=== PATIENT | female | born 1960 | race African-American/Black ===

== ENCOUNTER 2016-12-26 19:55 | Emergency (ER) | payer OTHER ==
[~2016-12-26] VITALS: Ht 167.6 cm; Wt 95.0 kg
[~2016-12-26 19:55] MED LIST: AMLO5TAB2 PO; ATOR10 PO; CONTOUR1 XX; DARU600 PO; ELVI1TAB4; IBUP600T26 PO; LISI40TA PO; MOME17I; MULT1PAK; NORV5TAB PO; SPIR50TA21 PO; VITA400C70 PO
[2016-12-26 19:56] VITALS: BP 206/124; PULSE 88; RESP 16; TEMP 98.1; O2SAT 99
[2016-12-26] MEDS ORDERED: NAPROXEN 500 MG TAB PO ONE (20:15)
--- NOTE | 2016-12-26 20:19 | PD ---
HPI Chief Complaint: Injury Time Seen by Provider: 20:17 Travel History International Travel<30 days: No Contact w/Intl Traveler<30days: No Traveled to known affect area: No History of Present Illness HPI Patient comes in complaining of right foot pain that occurred shortly prior to arrival. Patient states she was hanging curtains when the chair folded on her causing her feet to go between the chair causing her to fall and have a 60" flat screen TV fall on her right foot. Patient denies hitting her head or loss consciousness. Patient denies doing anything for this prior to arrival. Patient having an aching pain over the lateral aspect of the right foot proximally without radiation. Pain is worse with standing or trying to walk. Patient denies any numbness or tingling. Patient states she is supposed to take blood pressure but only takes it intermittently. Denies any chest pain or shortness breath, headache, numbness or tingling anywhere, loss of bowel or bladder, abdominal pain, or back pain. PFSH Past Medical History Hx Anticoagulant Therapy: Yes (ASA) Depression: Yes Heart Rhythm Problems: No Cardiac Catheterization: No Cardiovascular Problems: Yes (HTN) High Cholesterol: No Congestive Heart Failure: No Diabetes: Yes (NO MEDS) Diminished Hearing: No Hepatitis: Yes (C) Hypertension: Yes Reproductive: Yes Respiratory: Yes Myocardial Infarction: No Tubal Ligation: Yes Past Surgical History Section: Yes Cholecystectomy: Yes Coronary Artery Bypass Graft: No Gynecologic Surgery: Yes () Social History Alcohol Use: Yes (occ) Tobacco Use: Yes Substance Use: Yes (MARIJUANA) Allergies-Medications (Allergen,Severity, Reaction): Coded Allergies: No Known Allergies (Verified , 12/26/16) Reported Meds & Prescriptions Reported Meds & Active Scripts Active Lisinopril 40 Mg Tab 40 Mg PO DAILY Amlodipine (Amlodipine Besylate) 5 Mg Tab 5 Mg PO DAILY Norvasc (Amlodipine Besylate) 5 Mg Tab 5 Mg PO DAILY Spironolactone 50 Mg Tab 50 Mg PO DAILY Lipitor 10 mg tab (Atorvastatin) 10 Mg Tab 10 Mg PO HS Contour1 1 Strip XX DIRECTED contour next strips Prinivil 40 mg (Lisinopril) 40 Mg Tab 40 Mg PO DAILY Reported Emergen-C Vitamin C Lite (Multiple Vitamins W/ Minerals) 1 Morris Morris DAILY Ibuprofen 600 Mg Tab 600 Mg PO Q3HR PRN Prezista 600 Mg Tab (Darunavir) 600 Mg Tab 800 Mg PO DAILY Genvoya [id number] mg (Djwducjagiuf-Gubzdxhmmq-Kwjpxk) 1 Tab Tab DAILY Vitamin [id number] 400 Unit Cap 400 Unit PO DAILY Nasonex (Mometasone Furoate) 50 Mcg/Ac Spr 50 Mcg NA DAILY Review of Systems Except as stated in HPI: all other systems reviewed are Neg Physical Exam Narrative GENERAL: Well-developed, overly nourished, in no acute distress, and non-ill appearing. SKIN: Warm and dry. HEAD: Atraumatic. Normocephalic. EYES: Pupils equal and round. EOMI. No scleral icterus. No injection or drainage. ENT: No nasal bleeding or discharge. Mucous membranes pink and moist. NECK: Trachea midline. Supple. No nuclear rigidity. CARDIOVASCULAR: Dorsal pulses 2+ intact, and equal bilaterally. Capillary refill less than 2 seconds. RESPIRATORY: No accessory muscle use. No respiratory distress. MUSCULOSKELETAL: No obvious deformities. No clubbing. No cyanosis. No edema. Full range of motion. Ankle: Neagative anterior draw and Sin test. Negative Morenita's sign. No laxity noted with passive inversion and eversion of BL ankles. Negative squeeze test. Pulses equal BL distal to injury. Capillary refill less than 2 seconds distal to injury and equal BL. Sensation equal BL 1st web space. FROM of toes distal to injury and equal BL. NV intact distal to injury and equal BL. Dorsal pulses equal BL. Patient reports tenderness to palpation around soft tissue swelling of the proximal fourth and fifth metatarsal the dorsal aspect of her right foot. NEUROLOGICAL: Awake and alert. No obvious cranial nerve deficits. Motor grossly within normal limits. Normal speech. PSYCHIATRIC: Appropriate mood and affect; insight and judgment normal. Data Data Last Documented VS Vital Signs Date Time Temp Pulse Resp B/P Pulse Ox O2 Delivery O2 Flow Rate FiO2 12/26/16 21:27 84 14 177/99 Room Air 12/26/16 19:56 98.1 99 Orders Foot, Complete ([id number]) (12/26/16 ) Ice/Cold Pack (12/26/16 20:09) Naproxen (Naprosyn) (12/26/16 20:15) Splint Or Brace Apply/Monitor (12/26/16 20:54) MDM Medical Decision Making Medical Screen Exam Complete: Yes Emergency Medical Condition: Yes Differential Diagnosis Fracture, strain, contusion, back, medical noncompliance, other Narrative Course The patient appears to have suffered a contusion of the extremity. There is no clinical evidence to suspect bony injury by exam. Radiographic examination revealed no fracture seen at this time. The patient has full range of motion on active and passive motions. There is no significant edema. There is no proximal or distal joint effusion. The distal extremity appears neurovascularly intact, without evidence of neurovascular injury nor compartment syndrome. Tendon exam also was intact. The patient was discharged and given warnings for vascular compromise. The patient is to follow up with their regular physician or glazier supervisor. The patient agrees with plan. The patient presented with a chief complaint of elevated blood pressures. The patient has a prior history of hypertension and admits to noncompliance with their antihypertensive medications. The patient has no symptoms as well. The patient denied headache, changes in vision, nausea, vomiting, dizziness, weakness or loss of sensation. The patient denied and chest, back or abdominal pain. The patient also denied any shortness of breath, dyspnea on exertion, orthopnea or PND. The patient denies any edema to extremities. The patients blood pressures at discharge were at an acceptable level. I discussed with the patient the importance of continuing daily antihypertensive and to not skip doses or stop medications suddenly without instruction by their primary care physician. The patient was instructed to follow up and potential adjustment of blood pressure medications. Return warnings were given to the patient and the patient agreed with plan of care. Patient in no obvious distress upon re-evaluation. All pertinent Radiology result(s) discussed with patient. Any questions/concerns in reference to patient diagnosis/condition discussed and clarified prior to patient's discharge. Reinforced sheer importance of close follow up with patient's primary physician or primary care clinic. Instructed patient to return to ED immediately, if symptoms return/worsen. Pt showed understanding of above instructions. Further instructions and recommendations were detailed in discharge paperwork. Pt ambulated without difficulty out of ED at discharge. Diagnosis Primary Impression: Contusion of right foot, initial encounter Additional Impression: Hypertension Qualified Code: I10 - Essential hypertension Patient Instructions: Chronic Hypertension (ED), Contusion in Adults (ED), Crutch Instructions (ED), General Instructions, Splint Care (DC) Additional Instructions: Follow-up with your primary care physician and/or glazier supervisor in one to 3 days for reevaluation of your foot. Follow-up with your primary care doctor next week for reevaluation of your hypertension. Use [id number] Tylenol and/ or ibuprofen as needed for pain. Follow instructions on the packaging. Apply ice to affected area 20 minutes per hour as needed for pain. Wear Scooter wrap as needed for comfort. Use crutches for additional support as needed. Return to the emergency department if symptoms get worse. Disposition: 01 DISCHARGE HOME Condition: Stable Leroy Garcia Dec 26, 2016 20:19
--- NOTE | 2016-12-26 20:48 | RADRPT ---
EXAM DATE/TIME: 12/26/2016 20:31 [facility] COMPARISON: No previous studies available for comparison. INDICATIONS : Right foot pain from fall. MEDICAL HISTORY : None. SURGICAL HISTORY : None. ENCOUNTER: Initial ACUITY: 1 day PAIN SCORE: 10/10 LOCATION: lateral proximal plantar side of right foot. FINDINGS: No fracture seen of the right foot. No subluxations. Moderate degenerative changes are noted of the first metatarsophalangeal joint and sesamoids. Moderate heel spur and also a moderate-sized enthesophyte of the Achilles insertion. CONCLUSION: No acute fracture or subluxation seen of the right foot. Jose Mathews MD on December 26, 2016 at 20:46 Board Certified Radiologist. This report was verified electronically.
[2016-12-26 21:27] VITALS: BP 177/99; PULSE 84; RESP 14
[2017-01-15] MEDS ORDERED: VITA400C2 PO (10:16)
[2017-01-15] MEDS ORDERED: ELVI1TAB3 PO (10:16)
[2017-01-15] MEDS ORDERED: DARU800T PO (10:16)
[2017-01-15] MEDS ORDERED: SPIR50TA PO ×2 (10:16→10:27)
[2017-01-15] MEDS ORDERED: ATOR10TA15 PO (10:25)
[2017-01-15] MEDS ORDERED: AMLO5TAB2 PO (10:27)
[2017-01-15] MEDS ORDERED: LISI40TA PO (10:27)
[2017-01-28] MEDS ORDERED: LISI40TA PO (16:55)
[2017-01-29] MEDS ORDERED: AMLO5TAB2 PO (07:45)
[2017-03-05] MEDS ORDERED: LISI40TA PO (15:31)
== END 2016-12-26 21:37 | disposition home or self-care (01) ==
LOC: NEPB 19:55
DX: S90.31XA Contusion of right foot, initial encounter (principal); I10 Essential (primary) hypertension; E11.9 Type 2 diabetes mellitus without complications; W20.8XXA Other cause of strike by thrown, projected or falling object, initial encounter; W07.XXXA Fall from chair, initial encounter; Y93.E9 Activity, other interior property and clothing maintenance; Y92.009 Unspecified place in unspecified non-institutional (private) residence as the place of occurrence of the external cause; Z79.01 Long term (current) use of anticoagulants
CPT/HCPCS: 73630; 99283; E0113

== ENCOUNTER → 2017-01-08 | Outpatient (CLI) | payer OTHER ==
[~2017-01-08] MED LIST changes: +ATOR10TA15 PO; +DARU800T PO; +ELVI1TAB3 PO; +SPIR50TA PO; +VITA200C3 PO; +VITA400C2 PO
[2017-01-08 11:01] LABS: HDL CHOLESTEROL 45.6 MG/DL (40.0-60.0); LDL CHOLESTEROL 147 MG/DL (0-99)
[2017-01-08 16:57] LABS: HEMOGLOBIN A1a 0.9 %; HEMOGLOBIN A1b 1.8 %; HEMOGLOBIN Ao 84.9 %; HEMOGLOBIN LA1C 1.9 %; HEMOGLOBIN P3 3.8 %
== END ==
LOC: CLAB 10:23
PROVIDERS: ATTEND Nurse Practitioner Family
DX: E78.5 Hyperlipidemia, unspecified (principal); E11.9 Type 2 diabetes mellitus without complications
CPT/HCPCS: 36415; 80061; 83036

== ENCOUNTER 2017-04-17 10:03 | Observation (INO) | payer OTHER ==
[2017-04-17] VITALS (8 sets, daily range): BP systolic 136–183; BP diastolic 86–103; PULSE 56–66; RESP 16–20; TEMP 98.3–98.7; O2SAT 95–98
[~2017-04-17] VITALS: Ht 167.6 cm; Wt 100.0 kg
[~2017-04-17 10:03] MED LIST changes: -ATOR10 PO; -CONTOUR1 XX; -DARU600 PO; -ELVI1TAB4; -IBUP600T26 PO; -MOME17I; -MULT1PAK; -NORV5TAB PO; -SPIR50TA21 PO; -VITA200C3 PO; -VITA400C70 PO
[2017-04-17] MEDS ORDERED: VITA200C3 PO (10:25)
--- NOTE | 2017-04-17 10:29 | PD ---
HPI Chief Complaint: Chest Pain Time Seen by Provider: 10:17 Travel History International Travel<30 days: No Contact w/Intl Traveler<30days: No Traveled to known affect area: No History of Present Illness HPI The patient is a 56-year-old [place] female who presents emergency department for chest pain. The patient states she developed chest pain this morning while hanging pictures in her bedroom. The chest pain was left-sided, described as sharp and pressure, lasted approximately 15-20 minutes, and is associated with mild shortness of breath. The patient denied any nausea, vomiting, or diaphoresis. The patient does have a history of hypertension, hyperlipidemia, and family medical history with her mother having a myocardial infarction at the age of 55. The patient states the chest pain lasted for approximately 15-20 minutes, she sat down and the pain got better. The patient states she had a stress test performed 5 years ago [facility] which was negative, denies any previous cardiac catheterization. The patient denies any current nausea, vomiting, diarrhea, or abdominal pain. The chest pain has resolved. She denies any recent exertional symptoms. PFSH Past Medical History Hx Anticoagulant Therapy: Yes (ASA) Depression: Yes Heart Rhythm Problems: No Cardiac Catheterization: No Cardiovascular Problems: Yes (HTN) High Cholesterol: No Congestive Heart Failure: No Diabetes: Yes (diet controlled) Patient Takes Glucophage: No Diminished Hearing: No Hepatitis: Yes (C) Hypertension: Yes Reproductive: Yes Respiratory: Yes Myocardial Infarction: No ?: Not Tubal Ligation: Yes Past Surgical History Section: Yes Cholecystectomy: Yes Coronary Artery Bypass Graft: No Gynecologic Surgery: Yes () Social History Alcohol Use: Yes (occ) Tobacco Use: Yes Substance Use: Yes (MARIJUANA) Allergies-Medications (Allergen,Severity, Reaction): Coded Allergies: No Known Allergies (Verified , 01/15/17) Reported Meds & Prescriptions Reported Meds & Active Scripts Active Lisinopril 40 Mg Tab 40 Mg PO DAILY Amlodipine (Amlodipine Besylate) 5 Mg Tab 5 Mg PO DAILY Spironolactone 50 Mg Tab 50 Mg PO DAILY Atorvastatin (Atorvastatin Calcium) 10 Mg Tab 10 Mg PO HS Reported Vitamin E 200 Unit Cap 400 Units PO DAILY Prezista (Darunavir) 800 Mg Tab 800 Mg PO DAILY Genvoya (Gutxyollmicn-Nqqdiyznky-Kjusbwncctlo-Tenofvir) [id number] Mg Tab 1 Tab PO DAILY Review of Systems Except as stated in HPI: all other systems reviewed are Neg General / Constitutional: No: Fever HENT: No: Lightheadedness Cardiovascular: Positive: Chest Pain or Discomfort, No: Diaphoresis Respiratory: Positive: Shortness of Breath Gastrointestinal: No: Nausea, Vomiting, Abdominal Pain Musculoskeletal: No: Weakness, Edema Neurologic: No: Dizziness Physical Exam Narrative GENERAL: Awake, alert, very pleasant 86-year-old female who appears her stated age and is in no acute respiratory distress. SKIN: Focused skin assessment warm/dry. HEAD: Atraumatic. Normocephalic. EYES: Pupils equal and round. No scleral icterus. No injection or drainage. ENT: No nasal bleeding or discharge. Mucous membranes pink and moist. NECK: Trachea midline. No JVD. CARDIOVASCULAR: Regular rate and rhythm. No murmur appreciated. Palpation of the left chest wall does not reproduce symptoms. RESPIRATORY: No accessory muscle use. Clear to auscultation. Breath sounds equal bilaterally. GASTROINTESTINAL: Abdomen soft, non-tender, nondistended. No rebound tenderness. MUSCULOSKELETAL: No obvious deformities. No clubbing. No cyanosis. No edema. NEUROLOGICAL: Awake and alert. No obvious cranial nerve deficits. Motor grossly within normal limits. Normal speech. PSYCHIATRIC: Appropriate mood and affect; insight and judgment normal. Data Data Last Documented VS Vital Signs Date Time Temp Pulse Resp B/P Pulse Ox O2 Delivery O2 Flow Rate FiO2 04/17/17 10:37 66 20 165/103 04/17/17 10:37 Nasal Cannula 2 04/17/17 10:37 98 04/17/17 10:04 98.7 Orders Electrocardiogram (04/17/17 10:23) Ckmb (Isoenzyme) Profile (04/17/17 10:23) Complete Blood Count With Diff (04/17/17 10:23) Comprehensive Metabolic Panel (04/17/17 10:23) Magnesium (Mg) (04/17/17 10:23) Prothrombin Time / Inr (Pt) (04/17/17 10:23) Act Partial Throm Time (Ptt) (04/17/17 10:23) Troponin I (04/17/17 10:23) Lipase (04/17/17 10:23) Chest, Single Ap (04/17/17 10:23) Ecg Monitoring (04/17/17 10:23) Bilateral Bp Monitoring (04/17/17 10:23) Iv Access Insert/Monitor (04/17/17 10:23) Oximetry (04/17/17 10:23) Oxygen Administration (04/17/17 10:23) Aspirin Chew (Aspirin Chew) (04/17/17 10:30) Sodium Chloride 0.9% Flush (Ns Flush) (04/17/17 10:30) Sodium Chlorid 0.9% 500 Ml Inj (Ns 500 M (04/17/17 10:30) CKMB (04/17/17 10:30) CKMB% (04/17/17 10:30) Labs Laboratory Tests Test 04/17/17 10:30 White Blood Count 5.3 TH/MM3 Red Blood Count 4.65 MIL/MM3 Hemoglobin 13.4 GM/DL Hematocrit 39.8 % Mean Corpuscular Volume 85.7 FL Mean Corpuscular Hemoglobin 28.8 PG Mean Corpuscular Hemoglobin 33.7 % Concent Red Cell Distribution Width 13.2 % Platelet Count 199 TH/MM3 Mean Platelet Volume 9.3 FL Neutrophils (%) (Auto) 40.4 % Lymphocytes (%) (Auto) 48.2 % Monocytes (%) (Auto) 8.2 % Eosinophils (%) (Auto) 2.5 % Basophils (%) (Auto) 0.7 % Neutrophils # (Auto) 2.1 TH/MM3 Lymphocytes # (Auto) 2.5 TH/MM3 Monocytes # (Auto) 0.4 TH/MM3 Eosinophils # (Auto) 0.1 TH/MM3 Basophils # (Auto) 0.0 TH/MM3 CBC Comment DIFF FINAL Differential Comment Prothrombin Time 11.2 SEC Prothromb Time International 1.0 RATIO Ratio Activated Partial 29.1 SEC Thromboplast Time Sodium Level 136 MEQ/L Potassium Level 3.4 MEQ/L Chloride Level 104 MEQ/L Carbon Dioxide Level 27.2 MEQ/L Anion Gap 5 MEQ/L Blood Urea Nitrogen 12 MG/DL Creatinine 1.09 MG/DL Estimat Glomerular Filtration 63 ML/MIN Rate Random Glucose 97 MG/DL Calcium Level 8.9 MG/DL Magnesium Level 2.3 MG/DL Total Bilirubin 0.4 MG/DL Aspartate Amino Transf 22 U/L (AST/SGOT) Alanine Aminotransferase 25 U/L (ALT/SGPT) Alkaline Phosphatase 86 U/L Total Creatine Kinase 494 U/L Creatine Kinase MB 5.3 NG/ML Creatine Kinase MB % 1.1 % Troponin I LESS THAN 0.02 NG/ML Total Protein 8.7 GM/DL Albumin 3.8 GM/DL Lipase 190 U/L [facility] Medical Decision Making Medical Screen Exam Complete: Yes Emergency Medical Condition: Yes Medical Record Reviewed: Yes Interpretation(s) EKG reveals normal sinus rhythm with a rate of 69. Nonspecific T-wave changes. Last Impressions Chest X-Ray 04/17/17 1023 Signed Impressions: Service Date/Time: , April 17, 2017 10:35 - CONCLUSION: No acute disease. Jose Schaeffer MD Laboratory Tests Test 04/17/17 10:30 White Blood Count 5.3 TH/MM3 Red Blood Count 4.65 MIL/MM3 Hemoglobin 13.4 GM/DL Hematocrit 39.8 % Mean Corpuscular Volume 85.7 FL Mean Corpuscular Hemoglobin 28.8 PG Mean Corpuscular Hemoglobin 33.7 % Concent Red Cell Distribution Width 13.2 % Platelet Count 199 TH/MM3 Mean Platelet Volume 9.3 FL Neutrophils (%) (Auto) 40.4 % Lymphocytes (%) (Auto) 48.2 % Monocytes (%) (Auto) 8.2 % Eosinophils (%) (Auto) 2.5 % Basophils (%) (Auto) 0.7 % Neutrophils # (Auto) 2.1 TH/MM3 Lymphocytes # (Auto) 2.5 TH/MM3 Monocytes # (Auto) 0.4 TH/MM3 Eosinophils # (Auto) 0.1 TH/MM3 Basophils # (Auto) 0.0 TH/MM3 CBC Comment DIFF FINAL Differential Comment Prothrombin Time 11.2 SEC Prothromb Time International 1.0 RATIO Ratio Activated Partial 29.1 SEC Thromboplast Time Sodium Level 136 MEQ/L Potassium Level 3.4 MEQ/L Chloride Level 104 MEQ/L Carbon Dioxide Level 27.2 MEQ/L Anion Gap 5 MEQ/L Blood Urea Nitrogen 12 MG/DL Creatinine 1.09 MG/DL Estimat Glomerular Filtration 63 ML/MIN Rate Random Glucose 97 MG/DL Calcium Level 8.9 MG/DL Magnesium Level 2.3 MG/DL Total Bilirubin 0.4 MG/DL Aspartate Amino Transf 22 U/L (AST/SGOT) Alanine Aminotransferase 25 U/L (ALT/SGPT) Alkaline Phosphatase 86 U/L Total Creatine Kinase 494 U/L Creatine Kinase MB 5.3 NG/ML Creatine Kinase MB % 1.1 % Troponin I LESS THAN 0.02 NG/ML Total Protein 8.7 GM/DL Albumin 3.8 GM/DL Lipase 190 U/L Differential Diagnosis Differential diagnoses includes acute coronary syndrome, pulmonary embolism, GERD, esophageal spasm, pleurisy, pericarditis, myocarditis, costochondritis, musculoskeletal pain. Narrative Course IV was established, labs are drawn and sent, and the patient was placed on cardiac telemetry monitoring and continuous pulse oximetry monitoring. EKG was ordered and interpreted. Chest x-ray was obtained. The patient was administered aspirin orally. The patient was chest pain-free upon arrival, therefore, no nitroglycerin or morphine was administered. Chest x-rays unremarkable. The patient's EKG revealed nonspecific T-wave changes, initial troponin is unremarkable. Patient does have risk factors with hypertension, hyperlipidemia, and left-sided chest pain, therefore, will be 23 hour observation to the chest pain center for serial cardiac enzymes and further evaluation by cardiology. The patient is comfortable with this plan of care and disposition. Physician Communication Physician Communication The patient will be 23 hour observation to the chest pain Center for serial cardiac enzymes and further evaluation by cardiology. Diagnosis Primary Impression: Chest pain Qualified Code: R07.9 - Chest pain, unspecified type Admitting Information Admitting Physician Requests: Observation Condition: Stable Marlon Martinez MD Apr 17, 2017 10:29
[2017-04-17] MEDS ORDERED: SODIUM CHLORIDE 0.9% FLUSH 10 ML FLUSH IVF PRN (10:30)
[2017-04-17] MEDS ORDERED: ASPIRIN 81 MG CHEW TAB PO ONE (10:30)
[2017-04-17] MEDS ORDERED: SODIUM CHLORID 0.9% 500 ML INJ 500 ML IV ONE (10:30)
[2017-04-17 10:50] LABS: AUTOMATED NEUTROPHIL # 2.1 TH/MM3 (1.8-7.7); BASOPHIL % 0.7 % (0.0-2.0); EOSINOPHIL # 0.1 TH/MM3 (0-0.4); EOSINOPHIL % 2.5 % (0.0-4.0); HEMATOCRIT 39.8 % (35.0-46.0); HEMO FLAGS DIFF FINAL; LYMPH % 48.2 % (9.0-44.0); LYMPHOCYTE # 2.5 TH/MM3 (1.0-4.8); MEAN CELL VOLUME 85.7 FL (80.0-100.0); MEAN CORPUSCULAR HEMOGLOBIN 28.8 PG (27.0-34.0); MEAN CORPUSCULAR HGB CONC 33.7 % (32.0-36.0); MONO % 8.2 % (0.0-8.0); NEUT % 40.4 % (16.0-70.0); PLATELET COUNT 199 TH/MM3 (150-450); RED BLOOD COUNT 4.65 MIL/MM3 (4.00-5.30); RED CELL DISTRIBUTION WIDTH 13.2 % (11.6-17.2); WHITE BLOOD COUNT 5.3 TH/MM3 (4.0-11.0)
--- NOTE | 2017-04-17 10:54 | RADRPT ---
EXAM DATE/TIME: 04/17/2017 10:35 [facility] COMPARISON: CHEST PA & LAT, December 02, 2013, 7:45. INDICATIONS : Chest pain today. MEDICAL HISTORY : Hypertension. Diabetes mellitus type II. SURGICAL HISTORY : None. ENCOUNTER: Initial ACUITY: 1 day PAIN SCORE: 2/10 LOCATION: Bilateral chest FINDINGS: A single view of the chest demonstrates the lungs to be symmetrically aerated without evidence of mas s, infiltrate or effusion. The cardiomediastinal contours are unremarkable. Osseous structures are intact. CONCLUSION: No acute disease. Jose Schaeffer MD on April 17, 2017 at 10:52 Board Certified Radiologist. This report was verified electronically.
[2017-04-17 10:56] LABS: APTT (PATIENT) 29.1 SEC (24.3-30.1); PROTHROMBIN TIME - PATIENT 11.2 SEC (9.8-11.6)
[2017-04-17 10:59] LABS: ANION GAP 5 MEQ/L (5-15); AST (GOT) 22 U/L (15-37); BICARBONATE 27.2 MEQ/L (21.0-32.0); BLOOD UREA NITROGEN 12 MG/DL (7-18); CHLORIDE 104 MEQ/L (98-107); GLOMERULAR FILTRATION RATE 63 ML/MIN (>89); MAGNESIUM 2.3 MG/DL (1.5-2.5); POTASSIUM 3.4 MEQ/L (3.5-5.1); SODIUM (NA) 136 MEQ/L (136-145)
[2017-04-17 11:00] LABS: ALT (GPT) 25 U/L (10-53)
[2017-04-17 11:04] LABS: ALKALINE PHOSPHATASE 86 U/L (45-117); CREATINE KINASE 494 U/L (26-192); TOTAL BILIRUBIN ADULT 0.4 MG/DL (0.2-1.0)
[2017-04-17 11:17] LABS: CKMB 5.3 NG/ML (0.5-3.6)
--- NOTE | 2017-04-17 12:50 | HHI.HP ---
HPI Primary Care Physician Mariela Snell MD Chief Complaint Chest pain History of Present Illness 56-year-old female with significant medical history of hypertension, hyperlipidemia, HIV, and hepatitis C presents to emergency room for further evaluation of chest pain. Onset approximately 9 AM. She had just finished drinking her coffee and started to hang pictures when she developed sharp, left anterior chest pain radiating to her left jaw. Associated symptoms included " my breathing was off tab." Did not necessarily hurt to breathe nor was she short of breath. No nausea or diaphoresis. Duration 15 minutes. No known precipitating or relieving factors. Endorses situational stress. Endorses similar chest discomfort in the past that which she had a full cardiac workup and follow-up with Dr. Mcnulty for many years. Since her blood pressure has been well controlled she has not had chest discomfort in nearly 2 years. States she is compliant blood pressure medications. Review of Systems General: No fatigue,weakness, fever, chills, recent illness, or change in appetite. Has been in her general state of health. HEENT: No IVORY, no vision changes, no nasal congestion or drainage, no dysphasia CV: As stated above. No current chest pain or pressure. RESP: No SOB, cough, wheeze, or recent URI. GI: No nausea, vomiting, bowel changes, diarrhea. : No dysuria, urgency, or frequency EXT: No lower leg edema, no paraesthesias MS: No discomfort or change in ROM NEURO: No LOC or motor/sensory deficits PSYCH: No anxiety, depression. Endorses current situational stress. SKIN: No rashes, no concerning lesions Past Family Social History Allergies: Coded Allergies: No Known Allergies (Verified , 01/15/17) Past Medical History Hypertension, hyperlipidemia, hepatitis C, HIV, borderline diabetic Past Surgical History Cholecystectomy, Reported Medications Active Lisinopril 40 Mg Tab 40 Mg PO DAILY Amlodipine (Amlodipine Besylate) 5 Mg Tab 5 Mg PO DAILY Spironolactone 50 Mg Tab 50 Mg PO DAILY Atorvastatin (Atorvastatin Calcium) 10 Mg Tab 10 Mg PO HS Vitamin E 200 Unit Cap 400 Units PO DAILY Prezista (Darunavir) 800 Mg Tab 800 Mg PO DAILY Genvoya (Tzepxzwwqbwu-Pqhjcuyygl-Zftmdnkrefsx-Tenofvir) [phone] Mg Tab 1 Tab PO DAILY Active Ordered Medications Current Medications Medications (Trade) Dose Ordered Sig/Ludwig Route Start Time Stop Time Status Last Admin (NS Flush) 2 ml UNSCH PRN IVF 04/17/17 10:30 Family History Mother myocardial infarction age 55. Social History Known hypertension and hyperlipidemia. She has recently been taken off her oral anti-glycemic, currently blood sugars controlled with diet and exercise. Lifelong nonsmoker. Denies any alcohol or illegal drug use. Past cardiac testing Exercise stress test approximately 4 years ago at [facility]. Patient's laboratory secretary at that time Dr. Mcnulty she no longer follows with a laboratory secretary. Never had a cardiac catheterization. Physical Exam Vital Signs Vital Signs Date Time Temp Pulse Resp B/P Pulse Ox O2 Delivery O2 Flow Rate FiO2 04/17/17 12:12 59 20 152/98 04/17/17 10:37 66 20 165/103 04/17/17 10:37 Nasal Cannula 2 04/17/17 10:37 98 04/17/17 10:04 98.7 62 18 183/96 97 Room Air Physical Exam GENERAL: Alert WN, WD, NAD, pleasant, obese, female HEAD: NC, AT EYES: Sclera clear, conjunctiva without injection ENT: Mucous membranes pink and moist NECK: Supple, no masses, trachea midline CV: RRR, without murmur, rub, gallop, no JVD, S1-S2 no S3-S4. RESP: Clear lungs throughout bilateral, no crackles, wheeze, rhonchi, symmetrical chest rise, nonlabored, able to speak in full sentences ABD: Soft, NT, ND, no masses, positive bowel tones, obese EXT: Pulses +24, no dependent edema MS: Normal tone 4 extremities, nontender, no obvious deformities, full range of motion NEURO: CN II through CN XII grossly intact, motor strength 5/5, gait WNL PSYCH: A+O 3, pleasant affect, appropriate speech, appropriate mood and affect , insight and judgment SKIN: Normal turgor, normal texture Laboratory Laboratory Tests Test 04/17/17 10:30 White Blood Count 5.3 Red Blood Count 4.65 Hemoglobin 13.4 Hematocrit 39.8 Mean Corpuscular Volume 85.7 Mean Corpuscular Hemoglobin 28.8 Mean Corpuscular Hemoglobin 33.7 Concent Red Cell Distribution Width 13.2 Platelet Count 199 Mean Platelet Volume 9.3 Neutrophils (%) (Auto) 40.4 Lymphocytes (%) (Auto) 48.2 Monocytes (%) (Auto) 8.2 Eosinophils (%) (Auto) 2.5 Basophils (%) (Auto) 0.7 Neutrophils # (Auto) 2.1 Lymphocytes # (Auto) 2.5 Monocytes # (Auto) 0.4 Eosinophils # (Auto) 0.1 Basophils # (Auto) 0.0 CBC Comment DIFF FINAL Differential Comment Prothrombin Time 11.2 Prothromb Time International 1.0 Ratio Activated Partial 29.1 Thromboplast Time Sodium Level 136 Potassium Level 3.4 Chloride Level 104 Carbon Dioxide Level 27.2 Anion Gap 5 Blood Urea Nitrogen 12 Creatinine 1.09 Estimat Glomerular Filtration 63 Rate Random Glucose 97 Calcium Level 8.9 Magnesium Level 2.3 Total Bilirubin 0.4 Aspartate Amino Transf 22 (AST/SGOT) Alanine Aminotransferase 25 (ALT/SGPT) Alkaline Phosphatase 86 Total Creatine Kinase 494 Creatine Kinase MB 5.3 Creatine Kinase MB % 1.1 Troponin I LESS THAN 0.02 Total Protein 8.7 Albumin 3.8 Lipase 190 Result Diagram: 04/17/17 1030 04/17/17 1030 Imaging Last Impressions Chest X-Ray 04/17/17 1023 Signed Impressions: Service Date/Time: March 10:35 - CONCLUSION: No acute disease. Jose Schaeffer MD Course EKG Normal sinus rhythm, nonspecific T-wave changes Assessment and Plan Assessment and Plan #1 Chest painadmitted chest pain center. Will rule out with 3 sets of EKGs, cardiac enzymes, and monitor overnight. Seen and evaluated by Dr. Howie Bonds. Unfortunately, patient drink caffeine this morning therefore chemical stress test will be completed in a.m. If stress test unremarkable, plan is to discharge patient home with follow up with PCP. Patient agreeable to plan of care. #2 Hypertensioncontinue amlodipine, lisinopril, spironolactone #3 Hyperlipidemiacontinue atorvastatin #4 HIVcontinue antivirals Kalie Pham Apr 17, 2017 12:50
[2017-04-17] MEDS ORDERED: ONDANSETRON HCL 4 MG/2 ML VIAL IV PRN (13:00)
[2017-04-17] MEDS ORDERED: ACETAMINOPHEN 500 MG CPLT PO PRN (13:00)
[2017-04-17] MEDS ORDERED: NITROGLYCERIN 0.4 MG SL 25 TABS/BTL SL PRN (13:00)
[2017-04-17 14:18] LABS: CREATINE KINASE 433 U/L (26-192)
[2017-04-17 14:30] LABS: CKMB 4.4 NG/ML (0.5-3.6)
--- NOTE | 2017-04-17 15:14 | EKG ---
Date Performed: 04/17/2017 Time Performed: 10:26:45 PTAGE: 56 years EKG: Sinus rhythm NONSPECIFIC T-WAVE ABNORMALITY BORDERLINE ECG PREVIOUS TRACING : 07/10/2011 09.29 DOCTOR: Hoang Mejias Interpretating Date/Time 04/17/2017 15:13:02
[2017-04-17] MEDS ORDERED: POTASSIUM CHLORIDE 10 MEQ CONTROLLED RELEASE TAB PO ONE (15:30)
[2017-04-17] MEDS ORDERED: [UNRECOGNIZED DRUG - OTHER] PO SCH (16:00)
[2017-04-17] MEDS: DARUNAVIR 800 MG TAB PO SCH (16:00)
[2017-04-17] MEDS ORDERED: GENVOYA PO SCH (16:00)
[2017-04-17] MEDS: amLODIPine BESYLATE 5 MG TAB PO SCH (17:09)
[2017-04-17] MEDS: LISINOPRIL 20 MG TAB PO SCH (17:09)
[2017-04-17] MEDS: SPIRONOLACTONE 50 MG TAB PO SCH (17:12)
[2017-04-17 17:20] LABS: CREATINE KINASE 391 U/L (26-192)
[2017-04-17 17:32] LABS: CKMB 3.9 NG/ML (0.5-3.6)
[2017-04-17] MEDS ORDERED: ATORVASTATIN 10 MG TAB PO SCH (21:00)
[2017-04-17] MEDS: SODIUM CHLORIDE 0.9% FLUSH 10 ML FLUSH IV FLUSH SCH (21:42)
[2017-04-18] VITALS (7 sets, daily range): BP systolic 140–151; BP diastolic 88–94; PULSE 55–80; RESP 14–18; TEMP 98–98.2; O2SAT 95–100
[2017-04-18] MEDS ORDERED: GENVOYA PO SCH (09:00)
[2017-04-18] MEDS ORDERED: DARUNAVIR 800 MG TAB PO SCH (09:00)
[2017-04-18] MEDS ORDERED: SPIRONOLACTONE 50 MG TAB PO SCH (09:00)
[2017-04-18] MEDS ORDERED: NON-FORMULARY DRUG (Elvitegravir-Cobicistat-Emtricitabin-Tenofvir (Genvoya) 1 TAB) PO SCH (09:00)
[2017-04-18] MEDS ORDERED: amLODIPine BESYLATE 5 MG TAB PO SCH (09:00)
[2017-04-18] MEDS ORDERED: VITAMIN E 400 UNIT CAP PO SCH (09:00)
[2017-04-18] MEDS ORDERED: ASPIRIN 325 MG TAB PO SCH (09:00)
[2017-04-18] MEDS ORDERED: LISINOPRIL 20 MG TAB PO SCH (09:00)
--- NOTE | 2017-04-18 09:33 | EKG ---
Date Performed: 04/17/2017 Time Performed: 16:39:28 PTAGE: 56 years EKG: SINUS BRADYCARDIA MODERATE INTRAVENTRICULAR CONDUCTION DELAY NONSPECIFIC T-WAVE ABNORMALITY BORDERLINE ECG PREVIOUS TRACING : 04/17/2017 13.50 Since previous tracing, no significant change noted DOCTOR: Howie Bonds Interpretating Date/Time 04/18/2017 09:31:46
--- NOTE | 2017-04-18 09:34 | EKG ---
Date Performed: 04/17/2017 Time Performed: 13:50:15 PTAGE: 56 years EKG: SINUS BRADYCARDIA POSSIBLE ANTERIOR MYOCARDIAL INFARCTION ABNORMAL ECG NO PREVIOUS TRACING DOCTOR: Howie Bonds Interpretating Date/Time 04/18/2017 09:32:09
[2017-04-18] MEDS: amLODIPine BESYLATE 5 MG TAB PO SCH (09:45)
[2017-04-18] MEDS: LISINOPRIL 20 MG TAB PO SCH (09:46)
[2017-04-18] MEDS: SODIUM CHLORIDE 0.9% FLUSH 10 ML FLUSH IV FLUSH SCH (09:46)
[2017-04-18] MEDS: DARUNAVIR 800 MG TAB PO SCH (09:46)
[2017-04-18] MEDS: SPIRONOLACTONE 50 MG TAB PO SCH (09:47)
[2017-04-18] MEDS ORDERED: REGADENOSON INJ 0.4 MG/5 ML SYR ONE (10:35)
--- NOTE | 2017-04-18 12:21 | RADRPT ---
EXAM DATE/TIME: 04/18/2017 10:09 [facility] COMPARISON: No previous studies available for comparison. INDICATIONS : Left chest pain for one day. Angina. DOSE: 34.5 mCi Tc99m Myoview at stress. 11.0 mCi Tc99m Myoview at rest. 0.4 mg Lexiscan STRESS SYMPTOMS: Shortness of breath with chest pain. EJECTION FRACTION: 47% MEDICAL HISTORY : HIV. Hepatitis C. Hypertension. SURGICAL HISTORY : Cholecystectomy. section. Hysterectomy. ENCOUNTER: Initial ACUITY: 1 day PAIN SCALE: 3/10 LOCATION: Left chest TECHNIQUE: The patient underwent pharmacologic stress with infusion of prescribed dose. Continuous ECG tracing was monitored during stress. Gated SPECT imaging was performed after stress and conventional SPECT i maging was performed at rest. The examination was performed on a SPECT/CT scanner, both attenuation and non-corrected datasets were reviewed. FINDINGS: The best perfused myocardium in the anterior septal wall followed by the inferior wall. There is min imal vascular injury wall redistribution with mild hypokinesis. Ejection fraction is 47%. CONCLUSION: Mildly depressed ejection fraction with minimal stress-induced redistribution suggesting ischemia iba silar inferior wall. RISK CATEGORY: Low (<1% Annual Mortality Rate) Calvin Harp MD FACR on April 18, 2017 at 12:17 Board Certified Radiologist. This report was verified electronically.
--- NOTE | 2017-04-18 12:34 | HHI.DCPOC ---
Discharge Care Plan Diagnosis: (1) Chest pain (2) Hypertension (3) Hyperlipidemia (4) HIV (human immunodeficiency virus infection) Goals to Promote Your Health * To prevent worsening of your condition and complications * To maintain your health at the optimal level Directions to Meet Your Goals Take your medications as prescribed Follow your dietary instruction Follow activity as directed Keep your appointments as scheduled Take your immunizations and boosters as scheduled If your symptoms worsen call your PCP, if no PCP go to Urgent Care Center or Emergency Room Smoking is Dangerous to Your Health. Avoid second hand smoke Call the 24-hour hour crisis hotline for domestic abuse at Aurelio Sanabria Apr 18, 2017 12:34
--- NOTE | 2017-04-18 15:28 | TR ---
Date Performed: 04/18/2017 Time Performed: 10:51:18 DOCTOR: Howie Bonds DRUG LIST: CLINICAL HISTORY: ANGINA REASON FOR TEST: Angina REASON FOR ENDING: OBSERVATION: CONCLUSION: Lexiscan stress test was performed under standard four minute protocol. Radionuclid e was injected one minute prior to ending the test. No electrocardiographic abormalities were present to suggest ischemia. Nuclear imaging and interpretation are pending. COMMENTS:
== END 2017-04-18 14:01 | disposition home or self-care (01) ==
LOC: NEPE 10:03 → NEDA 12:06 → NEPHCDU 16:30
PROVIDERS: ADMIT Internal Medicine Cardiovascular Disease; ATTEND Internal Medicine Cardiovascular Disease
DX: R07.89 Other chest pain (principal); I10 Essential (primary) hypertension; E78.5 Hyperlipidemia, unspecified; B20 Human immunodeficiency virus [HIV] disease; R94.31 Abnormal electrocardiogram [ECG] [EKG]; R00.1 Bradycardia, unspecified; R06.02 Shortness of breath; R68.84 Jaw pain; I20.9 Angina pectoris, unspecified; E11.9 Type 2 diabetes mellitus without complications; B19.20 Unspecified viral hepatitis C without hepatic coma; F32.9 Major depressive disorder, single episode, unspecified; Z82.49 Family history of ischemic heart disease and other diseases of the circulatory system; Z79.899 Other long term (current) drug therapy
CPT/HCPCS: 71010; 78452; 80053; 82550; 82552; 83690; 83735; 84484; 85025; 85610; 85730; 93005; 93017; 96360; 99285; A9502; G0378; J2785; J7040

== ENCOUNTER 2017-04-27 11:32 | Emergency (ER) | payer OTHER ==
[~2017-04-27 11:32] MED LIST changes: +VITA200C3 PO; -VITA400C2 PO
[2017-04-27 11:35] VITALS: BP 135/83; PULSE 56; RESP 15; TEMP 97.8; O2SAT 98
== END 2017-04-27 11:46 | disposition left against medical advice (07) ==
LOC: NED 11:32
DX: R42 Dizziness and giddiness (principal); Z53.21 Procedure and treatment not carried out due to patient leaving prior to being seen by health care provider
CPT/HCPCS: 99281

== ENCOUNTER 2017-05-21 14:34 | Emergency (ER) | payer OTHER ==
[~2017-05-21] VITALS: Ht 167.6 cm; Wt 80.0 kg
[2017-05-21 14:39] VITALS: BP 192/100; PULSE 74; RESP 16; TEMP 97.9; O2SAT 98
--- NOTE | 2017-05-21 14:43 | PD ---
Physical Exam Time Seen by Provider: 14:40 Narrative 56yo F c/o L 1st finger laceration from a knife while at work today trying to slice open a bag. Says tetanus has been over 5 years. Patient seen in triage. VS reviewed. Patient awaiting bed placement. Data Data Last Documented VS Vital Signs Date Time Temp Pulse Resp B/P Pulse Ox O2 Delivery O2 Flow Rate FiO2 05/21/17 14:39 97.9 74 16 192/100 98 MDM Supervised Visit with ANITRA: Brianna Silverman May 21, 2017 14:42
--- NOTE | 2017-05-21 19:20 | PD ---
HPI Chief Complaint: Laceration/Skin Injury Time Seen by Provider: 19:17 Travel History International Travel<30 days: No Contact w/Intl Traveler<30days: No Traveled to known affect area: No History of Present Illness HPI 56-year-old [place] black female presents to emergency department for a laceration to her left index finger which occurred sometime around 2:30 3: 00 today while working at the [employer] She states that she accidentally cut herself with a knife opening up a bag in a [employer]. She denies any sensory changes. She states that it bled a lot initially. It is not bleeding now. She has not had a tetanus shot over 5 years. Symptoms are mild. No alleviating factors. PFSH Past Medical History Hx Anticoagulant Therapy: Yes (ASA) Depression: Yes Heart Rhythm Problems: No Cardiac Catheterization: No Cardiovascular Problems: Yes (HTN) High Cholesterol: Yes Congestive Heart Failure: No Diabetes: Yes (used to be, patient states they took her off medication) Diminished Hearing: No Hepatitis: Yes (C) Hypertension: Yes Reproductive: Yes Respiratory: Yes Myocardial Infarction: No Tubal Ligation: Yes Past Surgical History Section: Yes Cholecystectomy: Yes Coronary Artery Bypass Graft: No Gynecologic Surgery: Yes () Social History Alcohol Use: Yes (occ) Tobacco Use: Yes Substance Use: Yes (MARIJUANA) Allergies-Medications (Allergen,Severity, Reaction): Coded Allergies: No Known Allergies (Verified , 05/21/17) Reported Meds & Prescriptions Reported Meds & Active Scripts Active Lisinopril 40 Mg Tab 40 Mg PO DAILY Amlodipine (Amlodipine Besylate) 5 Mg Tab 5 Mg PO DAILY Spironolactone 50 Mg Tab 50 Mg PO DAILY Atorvastatin (Atorvastatin Calcium) 10 Mg Tab 10 Mg PO HS Reported Vitamin E 200 Unit Cap 400 Units PO DAILY Prezista (Darunavir) 800 Mg Tab 800 Mg PO DAILY Genvoya (Jeksndcvagmu-Nfaewwrmzi-Vpfejdzqapby-Tenofvir) [phone] Mg Tab 1 Tab PO DAILY Review of Systems Except as stated in HPI: all other systems reviewed are Neg Physical Exam Narrative GENERAL: This is a well-nourished, well-developed patient, in no apparent distress. SKIN: No rashes, ecchymoses or lesions. Warm and dry. HEAD: Atraumatic. Normocephalic. EYES: PERRL, EOMI, no discharge or injection. No scleral icterus. EARS: Clear NOSE: Nasal turbinates appear normal. THROAT: Mucosa pink and moist. Airway patent. NECK: Trachea midline. supple, moves head freely. LUNGS: Clear to auscultation. CV: Regular in rhythm. ABDOMEN: Soft nontender. EXT: No clubbing cyanosis or edema. Patient has a 1.8 cm laceration to the volar distal pad of the left index finger. Patient has intact sensation with good distal pulses. Good Refill. No deep injury. No tendon, joint or nerve injury. Data Data Last Documented VS Vital Signs Date Time Temp Pulse Resp B/P Pulse Ox O2 Delivery O2 Flow Rate FiO2 05/21/17 14:39 97.9 74 16 192/100 98 MDM Medical Decision Making Medical Screen Exam Complete: Yes Emergency Medical Condition: Yes Medical Record Reviewed: Yes Differential Diagnosis MDM: High Differential diagnoses: Fracture, sprain, strain, dislocation, contusion, neurovascular injury Narrative Course Patient's tetanus status updated. Patient's wound is closed sutures. Procedures Procedure Narrative LACERATION LOCATION: Left index finger distal phalanx volar pad LENGTH: 1.8 cm NUMBER OF STITCHES/OLIVIER: 4 REPAIR: The area of the laceration was prepped with Betadine and sterilely draped. The laceration was infiltrated with 1% lidocaine digital block. The wound was copiously irrigated and explored without evidence of foreign body, tendon injury or neurovascular injury. The wound was closed using 5-0 proline. This was a simple single layer repair. A sterile dressing was applied. The patient was advised to keep the dressing clean and dry. Patient tolerated the procedure well. Diagnosis Primary Impression: Laceration of left index finger Patient Instructions: General Instructions Additional Instructions: Rest. Elevation. Keep clean and dry. Daily wound care with soap, water, Neosporin. Tylenol and Advil for pain. Sutures out in 14 days. Return to the ER for any problems. Med/Other Pt SpecificInfo: Wound Care Disposition: DISCHARGE HOME Condition: Stable Lennox Huang May 21, 2017 19:20
[2017-05-21] MEDS ORDERED: TETANUS/DIPHTHERIA TOXOID ADULT 0.5 ML VIAL IM ONE (19:30)
== END 2017-05-21 20:11 | disposition home or self-care (01) ==
LOC: NEPK 14:34
DX: S61.211A Laceration without foreign body of left index finger without damage to nail, initial encounter (principal); W26.0XXA Contact with knife, initial encounter; Y99.0 Civilian activity done for income or pay; Z23 Encounter for immunization
CPT/HCPCS: 12001; 90471; 90714

== ENCOUNTER 2017-06-25 21:32 | Emergency (ER) | payer OTHER ==
[2017-06-25 21:33] VITALS: BP 158/104; PULSE 85; RESP 16; O2SAT 96
[2017-06-25] MEDS ORDERED: predniSONE 20 MG TAB PO ONE (22:00)
[2017-06-25] MEDS ORDERED: diphenhydrAMINE HCL 50 MG/ML VIAL IM ONE (22:00)
[2017-06-25] MEDS ORDERED: RANITIDINE HCL SYRUP 150 MG/10 ML UDC PO ONE (22:00)
--- NOTE | 2017-06-25 22:07 | PD ---
HPI Chief Complaint: Allergic/Adverse Reaction Time Seen by Provider: 21:58 Travel History International Travel<30 days: No Contact w/Intl Traveler<30days: No Traveled to known affect area: No History of Present Illness HPI 57 year-old female with a history of HIV with undetectable viral load, hypertension, presents to the emergency department for evaluation of a burning, pruritic rash on her abdomen. Patient states she was cleaning lobster when the juice got on her shirt. Her shirt was up against her abdomen and then her skin began to burn. She took off her shirt and noticed a red rash. She got into the shower but her skin continued to burn where the use from the lobster had touched her skin. She does not recall an allergy to lobster but has never had it before. Denies any oral sensations of tingling or swelling. No sensation as though her airway is closing. She has no chest tightness or wheezing. She has no other symptoms to report. PFSH Past Medical History Hx Anticoagulant Therapy: Yes (ASA) Depression: Yes Heart Rhythm Problems: No Cardiac Catheterization: No Cardiovascular Problems: Yes (HTN) High Cholesterol: Yes Congestive Heart Failure: No Diabetes: Yes (used to be, patient states they took her off medication) Patient Takes Glucophage: No Diminished Hearing: No Hepatitis: Yes (C) Hypertension: Yes Immune Disorder: Yes (HIV) Reproductive: Yes Respiratory: Yes Myocardial Infarction: No ?: Not Tubal Ligation: Yes Past Surgical History Section: Yes Cholecystectomy: Yes Coronary Artery Bypass Graft: No Gynecologic Surgery: Yes () Family History Family Myocardial Infarction: Yes (father at 84 yrs old, brother [place] as well) Social History Alcohol Use: Yes (occ) Tobacco Use: Yes Substance Use: Yes (MARIJUANA) Allergies-Medications (Allergen,Severity, Reaction): Coded Allergies: No Known Allergies (Verified , 06/25/17) Reported Meds & Prescriptions Reported Meds & Active Scripts Active Lisinopril 40 Mg Tab 40 Mg PO DAILY Amlodipine (Amlodipine Besylate) 5 Mg Tab 5 Mg PO DAILY Spironolactone 50 Mg Tab 50 Mg PO DAILY Reported Vitamin E 200 Unit Cap 400 Units PO DAILY Prezista (Darunavir) 800 Mg Tab 800 Mg PO DAILY Genvoya (Sxdiotosrgav-Dbkzpsvvwt-Bakazaloooct-Tenofvir) [phone] Mg Tab 1 Tab PO DAILY Review of Systems Except as stated in HPI: all other systems reviewed are Neg Physical Exam Narrative GENERAL: Well-nourished female patient, in no acute distress SKIN: Focused skin assessment warm/dry. Isolated Raised blanchable erythematous wheals on the abdomen where the patient reports the juice from the lobster touched her skin. No blisters or pustules. HEAD: Atraumatic. Normocephalic. EYES: Pupils equal and round. No scleral icterus. No injection or drainage. ENT: No nasal bleeding or discharge. Mucous membranes pink and moist. Airway remains patent. NECK: Trachea midline. No JVD. No stridor CARDIOVASCULAR: Regular rate and rhythm. No murmur appreciated. RESPIRATORY: No accessory muscle use. Clear to auscultation. Breath sounds equal bilaterally. GASTROINTESTINAL: Abdomen soft, non-tender, nondistended. Hepatic and splenic margins not palpable. Data Data Last Documented VS Vital Signs Date Time Temp Pulse Resp B/P (MAP) Pulse Ox O2 Delivery O2 Flow Rate FiO2 06/25/17 22:43 06/25/17 21:33 85 16 96 Room Air Orders Orders Diphenhydramine Inj (Benadryl Inj) (06/25/17 22:00) Prednisone (Deltasone) (06/25/17 22:00) Ranitidine Liq (Zantac Liq) (06/25/17 22:00) MDM Medical Decision Making Medical Screen Exam Complete: Yes Emergency Medical Condition: Yes Medical Record Reviewed: Yes Differential Diagnosis Contact dermatitis versus urticaria versus allergic reaction versus anaphylaxis Narrative Course 57-year-old female presents to emergency department for evaluation of an area on her abdomen that has developed hives after juice from a lobster came in contact with her abdomen. Patient appears without distress. She is having no other signs of an allergic reaction or anaphylaxis. She is provided steroids, Zantac, Benadryl. She is reassessed and the urticaria has began to resolve. She is counseled on care and agrees to return immediately if any acute worsening symptoms. Diagnosis Primary Impression: Contact dermatitis and other eczema due to food in contact with skin Referrals: Primary Care Physician Patient Instructions: Contact Dermatitis (ED), General Instructions Additional Instructions: Consider follow-up with an hockey scout for further evaluation of potential shellfish allergy. Avoid eating shellfish until this has been complete. Avoid scratching the area Continue with Benadryl by mouth every 6-8 hours as structure on package as needed for itching or burning Follow-up with a primary care provider Return immediately with any acute worsening of symptoms Med/Other Pt SpecificInfo: No Change to Meds Disposition: 01 DISCHARGE HOME Condition: Stable Sonal Burr Jun 25, 2017 22:07
== END 2017-06-25 22:44 | disposition home or self-care (01) ==
LOC: NEPK 21:32
DX: L25.4 Unspecified contact dermatitis due to food in contact with skin (principal); I10 Essential (primary) hypertension; E78.00 Pure hypercholesterolemia, unspecified; F32.9 Major depressive disorder, single episode, unspecified; F12.90 Cannabis use, unspecified, uncomplicated; Z72.0 Tobacco use; Z21 Asymptomatic human immunodeficiency virus [HIV] infection status
CPT/HCPCS: 96372; 99284; J1200; J7512

== ENCOUNTER 2018-02-28 09:22 | Emergency (ER) | payer OTHER ==
[~2018-02-28 09:22] MED LIST changes: -ATOR10TA15 PO; -DARU800T PO; +DARU800T2 PO
[2018-02-28 09:28] VITALS: BP 178/96; PULSE 94; RESP 14; TEMP 98.7; O2SAT 96
[2018-02-28 09:40] VITALS: BP 145/94; PULSE 81; RESP 16; O2SAT 97
[2018-02-28] MEDS ORDERED: ASPI81CH6 CHEW (09:40)
--- NOTE | 2018-02-28 09:40 | PD ---
HPI Chief Complaint: Hypertension Time Seen by Provider: 09:35 Travel History International Travel<30 days: No Contact w/Intl Traveler<30days: No Traveled to known affect area: No History of Present Illness HPI 57-year-old female presents emergency department for evaluation of elevated blood pressure and head pressure. Patient states that she ran out of her antihypertensives 1 week ago. She checks her blood pressure in the morning and night and states that the systolic was 180 this morning. She states she has felt head pressure. No nausea vomiting. No focal deficits or weakness. No visual disturbances. Patient did find 1 of her pills left and she took it this morning. She states that her head pressure has began to ease up, she rates it a 4 out of 10. She has no other symptoms to report at this time. PFSH Past Medical History Hx Anticoagulant Therapy: Yes (ASA) Depression: Yes Heart Rhythm Problems: No Cardiac Catheterization: No Cardiovascular Problems: Yes (HTN) High Cholesterol: Yes Congestive Heart Failure: No Diabetes: Yes (used to be, patient states they took her off medication) Diminished Hearing: No Hepatitis: Yes (C) Hypertension: Yes Immune Disorder: Yes (HIV) Reproductive: Yes Respiratory: Yes Myocardial Infarction: No Tubal Ligation: Yes Past Surgical History Section: Yes Cholecystectomy: Yes Coronary Artery Bypass Graft: No Gynecologic Surgery: Yes () Social History Alcohol Use: Yes (occ) Tobacco Use: Yes Substance Use: Yes (MARIJUANA) Allergies-Medications (Allergen,Severity, Reaction): Coded Allergies: No Known Allergies (Verified , 06/25/17) Reported Meds & Prescriptions Reported Meds & Active Scripts Active Lisinopril 40 Mg Tab 40 Mg PO DAILY Amlodipine (Amlodipine Besylate) 5 Mg Tab 5 Mg PO DAILY Spironolactone 50 Mg Tab 50 Mg PO DAILY Reported Aspirin Low Dose (Aspirin) 81 Mg Chew 81 Mg CHEW DAILY Vitamin E 200 Unit Cap 400 Units PO DAILY Prezista (Darunavir) 800 Mg Tab 800 Mg PO DAILY Genvoya (Zgsyeypgrohh-Spxzvpgrnz-Dikalcqjkzrf-Tenofvir) [phone] Mg Tab 1 Tab PO DAILY Review of Systems Except as stated in HPI: all other systems reviewed are Neg Physical Exam Narrative GENERAL: Well-nourished female patient, amatory with a nonantalgic gait no acute distress. SKIN: Focused skin assessment warm/dry. HEAD: Atraumatic. Normocephalic. EYES: Pupils equal and round. No scleral icterus. No injection or drainage. EOMI. ENT: No nasal bleeding or discharge. Mucous membranes pink and moist. NECK: Trachea midline. No JVD. CARDIOVASCULAR: Regular rate and rhythm. No murmur appreciated. RESPIRATORY: No accessory muscle use. Clear to auscultation. Breath sounds equal bilaterally. GASTROINTESTINAL: Abdomen soft, non-tender, nondistended. Hepatic and splenic margins not palpable. MUSCULOSKELETAL: No obvious deformities. No clubbing. No cyanosis. No edema. NEUROLOGICAL: Awake and alert. No obvious cranial nerve deficits. Motor grossly within normal limits. Normal speech. PSYCHIATRIC: Appropriate mood and affect; insight and judgment normal. Data Data Last Documented VS Vital Signs Date Time Temp Pulse Resp B/P (MAP) Pulse Ox O2 Delivery O2 Flow Rate FiO2 02/28/18 12:25 02/28/18 09:40 81 16 97 02/28/18 09:[address] Brain W/O Iv Contrast(Rout) (02/28/18 ) Ed Discharge Order (02/28/18 11:54) [facility] Medical Decision Making Medical Screen Exam Complete: Yes Emergency Medical Condition: Yes Medical Record Reviewed: Yes Differential Diagnosis Hypertension versus hypertensive urgency versus hypertensive crisis versus migraine versus tension headache versus cluster headache Narrative Course 57-year-old female presents emergency department for evaluation of elevated blood pressure and head pressure. Patient has no focal deficits or weakness. Her blood pressure is actually within normal limits here. Likely secondary to her taking her antihypertensives this morning. CT imaging of the brain is without acute intracranial abnormality. Patient will be given refill of her antihypertensives and encouraged follow-up with a primary care provider. She agrees to return immediately with acute worsening symptoms. Diagnosis Primary Impression: Hypertension Qualified Codes: I10 - Essential (primary) hypertension Additional Impression: Headache Qualified Codes: R51 - Headache Referrals: Primary Care Physician Patient Instructions: Chronic Hypertension (ED), General Instructions Additional Instructions: Follow-up with a primary care provider Return immediately with acute worsening symptoms Med/Other Pt SpecificInfo: Prescription(s) given Scripts Lisinopril (Lisinopril) 40 Mg Tab 40 MG PO DAILY for Blood Pressure Management, #30 TAB 3 Refills Prov: Sonal Burr 02/28/18 Amlodipine (Amlodipine) 5 Mg Tab 5 MG PO DAILY for Blood Pressure Management, #30 TAB 3 Refills Prov: Sonal Burr 02/28/18 Spironolactone (Spironolactone) 50 Mg Tab 50 MG PO DAILY, #30 TAB 5 Refills Prov: Sonal Burr 02/28/18 Disposition: 01 DISCHARGE HOME Condition: Stable Sonal Burr February 28, 2018 09:40
--- NOTE | 2018-02-28 11:49 | RADRPT ---
EXAM DATE/TIME: 02/28/2018 10:59 [facility] COMPARISON: No previous studies available for comparison. INDICATIONS : Head pressure for 3 days. RADIATION DOSE: 56.35 CTDIvol (mGy) MEDICAL HISTORY : HIV. Hepatitis C. Cardiovascular diseaseHypertension, diabetes SURGICAL HISTORY : Cholecystectomy. Hysterectomy. ENCOUNTER: Initial ACUITY: 3 days PAIN SCALE: 4/10 LOCATION: cranial TECHNIQUE: Multiple contiguous axial images were obtained of the head. Using automated exposure control and adj ustment of the mA and/or kV according to patient size, radiation dose was kept as low as reasonably a chievable to obtain optimal diagnostic quality images. DICOM format image data is available electro nically for review and comparison. FINDINGS: CEREBRUM: The ventricles are normal for age. No evidence of midline shift, mass lesion, hemorrhage or acute in farction. No extra-axial fluid collections are seen. POSTERIOR FOSSA: The cerebellum and brainstem are intact. The 4th ventricle is midline. The cerebellopontine angle i s unremarkable. EXTRACRANIAL: The visualized portion of the orbits is intact. SKULL: The calvaria is intact. No evidence of skull fracture. CONCLUSION: No acute disease. Dipti Leone MD on February 28, 2018 at 11:46 Board Certified Radiologist. This report was verified electronically.
[2018-02-28] MEDS ORDERED: LISI40TA PO (11:55)
[2018-02-28] MEDS ORDERED: SPIR50TA PO (11:55)
[2018-02-28] MEDS ORDERED: AMLO5TAB2 PO (11:55)
== END 2018-02-28 12:26 | disposition home or self-care (01) ==
LOC: NEPD 09:22
DX: I10 Essential (primary) hypertension (principal); R51 Headache; E78.00 Pure hypercholesterolemia, unspecified; E11.9 Type 2 diabetes mellitus without complications; B19.20 Unspecified viral hepatitis C without hepatic coma; F32.9 Major depressive disorder, single episode, unspecified; Z21 Asymptomatic human immunodeficiency virus [HIV] infection status; Z72.0 Tobacco use; Z79.899 Other long term (current) drug therapy
CPT/HCPCS: 70450